=== PATIENT | female | born 1950 | race Caucasian/White ===

== ENCOUNTER 2017-05-12 14:27 | Emergency (ER) | payer MEDICARE, BC ==
[2017-05-12 14:45] VITALS: BP 129/69
--- NOTE | 2017-05-12 15:02 | ERNOTE ---
Lower Extremity HPI - General Time Seen by Provider: 05/12/17 14:50 Source: patient Exam Limitations: no limitations - Immun/Allergies/Home Medications Immunizations: IMMUNIZATION HX Immunizations Up to Date Yes History of Influenza Vaccine No Hx Pneumococcal Vaccination No Allergies/Adverse Reactions: Allergies Allergy/AdvReac Type Severity Reaction Status Date / Time amoxicillin trihydrate Allergy Verified 05/12/17 14:46 [From Augmentin] codeine Allergy Verified 05/12/17 14:46 ferrous sulfate Allergy Verified 05/12/17 14:46 levofloxacin [From Levaquin] Allergy Verified 05/12/17 14:46 potassium clavulanate Allergy Verified 05/12/17 14:46 [From Augmentin] Sulfa (Sulfonamide Allergy Verified 05/12/17 14:46 Antibiotics) Home Medications: HOME MEDICATIONS Enalapril Maleate 20 mg PO BID 07/14/13 [Last Taken Unknown] Gabapentin 800 mg PO QID 07/14/13 [Last Taken Unknown] Furosemide [Lasix] 40 mg PO DAILY PRN 07/16/13 [Last Taken Unknown] Gemfibrozil 300 mg PO HS 07/16/13 [Last Taken Unknown] Nabumetone 500 mg PO BID PRN 07/16/13 [Last Taken Unknown] Simvastatin [Zocor] 40 mg PO HS 07/16/13 [Last Taken Unknown] glipiZIDE [Glipizide Xl] 5 mg PO DAILY 07/16/13 [Last Taken Unknown] metFORMIN HCL [Metformin HCl] 1,000 mg PO BID 07/17/13 [Last Taken Unknown] Levofloxacin [Levaquin] 500 mg PO DAILY #30 tab 07/17/16 [Last Taken Unknown] Cyclobenzaprine HCl [Flexeril] 20 mg PO 08/22/16 [Last Taken Unknown] Folic Acid 1 mg PO DAILY 08/22/16 [Last Taken Unknown] metroNIDAZOLE [Flagyl] 500 mg PO 08/22/16 [Last Taken Unknown] Cyclobenzaprine HCl [Flexeril] 10 mg PO TID #5 tablet 05/12/17 [Last Taken Unknown] - History of Present Illness Narrative: pt bent over to life her up last week and felt a sudden sharp pain in the left lumbar region of her spine. She went to chiropractor and it did not help. She has pain in the left lumbar region. There is no radiation of the pain down the LLE. Patient denies any urinary complaints Review of Systems - Review of Systems Constitutional: Present: no symptoms reported EYE: Present: no symptoms reported ENT: Present: no symptoms reported Respiratory: Present: no symptoms reported Cardiology: Present: no symptoms reported Gastrointestinal/Abdominal: Present: no symptoms reported Genitourinary: Present: no symptoms reported Musculoskeletal: Present: See HPI, back pain, muscle pain Skin: Present: no symptoms reported Neurological: Present: no symptoms reported - Patient's Past Medical History Patient History - Medical: Arthritis, Diabetes Type 2, Fibromyalgia, GERD Patient History - Cardiac/Respiratory: No pertinent hx Patient History - Cancer: No Hx of Cancer Patient History - Surgical Procedures: Appendectomy, Hysterectomy, Other Patient History - Other: None - Social History Living Situations: home Abuse History: No History of abuse Psych History: No pertinent hx Smoking Status: Never smoker Alcohol Use: occasionally Drug Use: none - Immunizations Immunizations Up to Date: Yes Hx Pneumococcal Vaccination: No History of Influenza Vaccine: No Physical Exam - Physical Exam General Appearance: Present: wd/wn, alert, no apparent distress Head Exam: Present: normal inspection, no evidence of injury Ears, Nose, Throat: Present: normal ENT inspection Neck: Present: normal inspection, nontender Respiratory: Present: no respiratory distress, normal breath sounds, no accessory muscle use, chest nontender, lungs clear Cardiovascular/Chest: Present: regular rate, rhythm, no murmur, normal peripheral pulses Back Exam: Present: other - patient does have significant spasm of the left paravertebral muscle group in the lumbar region. DTRs are intact patellar and Achilles. Quadriceps strength appears to be normal bilaterally. This examiner feels a significant amount of spasm and the corresponding region on the left lumbar region. Extremity Exam: Present: normal inspection, normal range of motion Neurological Exam: Present: alert, oriented, normal mood/affect, no motor/ sensory deficits ED Progress - Vital Signs Patient's Vital Signs:: I have reviewed the patient's vital signs. Vital Signs: Vital Signs 05/12/17 14:41 Temperature 36.5 C Pulse Rate 98 Respiratory 16 Rate Blood Pressure 129/69 O2 Sat by Pulse 95 Oximetry - Progress/Reassessment Chief Complaint: Hip Pain/Injury Plan - Plan Plan: Patient appears to have significant muscle spasm perhaps due to inappropriate lifting of her spouse at this time we will treat her pain with Toradol 60 mg IM. She is to follow-up with her primary care physician. And I did suggest that the patient place some heat modalities on the area of tenderness spasm and pain. Departure Clinical Impression: Muscle spasm - Departure Disposition: Home self-care Condition: Good Instructions: Muscle Cramps and Spasms, [id number] Referrals: Calos Fontenot MD [Primary Care Provider] - Prescriptions: Cyclobenzaprine HCl [Flexeril] 10 mg PO TID #5 tablet
[2017-05-12] MEDS ORDERED: KETOROLAC TROMETHAMINE 60 MG/2 ML VIAL IM ONE ×2 (15:12→15:23)
== END 2017-05-12 15:40 | disposition home or self-care (01) ==
LOC: ER 14:27
DX: M62.838 Other muscle spasm (principal)